=== PATIENT | male | born 1990 | race Caucasian/White ===

== ENCOUNTER 2022-04-05 08:19 | Outpatient (CLI) | payer OTHER, SELFPAY ==
[2022-04-05 09:51] LABS: Albumin* 4.3 g/dL (3.3-5.0); Chloride* 102 mmol/L (96-114)
[2022-04-05 09:52] LABS: Potassium* 4.2 mmol/L (3.6-5.1); Sodium* 140 mmol/L (135-149)
[2022-04-05 09:54] LABS: Aspartate Amino Transferase* 60 U/L (12-35); Bilirubin Total* 1.2 mg/dL (0.1-1.5); Blood Urea Nitrogen* 15 mg/dL (5-24); Carbon Dioxide* 30 mmol/L (20-32); Cholesterol* 155 mg/dL (90-199); Creatinine* 0.9 mg/dL (0.5-1.5); Estimated Glomerular Filt Rate 116 ml/min; Glucose* 101 mg/dL (60-115); Total Protein* 7.2 g/dL (6.0-8.3)
[2022-04-05 09:55] LABS: Alanine Aminotransferase* 103 U/L (4-50); Alkaline Phosphatase* 68 U/L (40-150); Calcium* 8.9 mg/dL (8.4-10.6); HDL Cholesterol* 50 mg/dL (>=40); LDL Cholesterol Calculated 78 mg/dL (<100); Triglycerides* 133 mg/dL (40-149)
== END 2022-04-05 08:20 | disposition home or self-care (01) ==
PROVIDERS: PCP Family Medicine; Visit Provider Family Medicine
DX: I10 Essential (primary) hypertension (principal); E66.9 Obesity, unspecified; Z13.6 Encounter for screening for cardiovascular disorders
CPT/HCPCS: 80053; 80061

== ENCOUNTER 2022-06-21 08:58 | Outpatient (CLI) | payer OTHER, SELFPAY | END 2022-06-21 08:59 | disposition home or self-care (01) | LOC: NFLDREF 09:00 | PROVIDERS: PCP Family Medicine; Visit Provider Family Medicine | DX: I10 Essential (primary) hypertension (principal); E66.9 Obesity, unspecified; B35.1 Tinea unguium | CPT/HCPCS: 80053 ==

== ENCOUNTER 2023-02-20 08:19 | Outpatient (CLI) | payer OTHER, SELFPAY | END 2023-02-20 08:20 | disposition home or self-care (01) | LOC: NFLDREF 02-21 16:17 | PROVIDERS: PCP Family Medicine; Referring Provider Family Medicine; Visit Provider Family Medicine | DX: Z00.00 Encounter for general adult medical examination without abnormal findings (principal); R79.89 Other specified abnormal findings of blood chemistry; I10 Essential (primary) hypertension; E66.01 Morbid (severe) obesity due to excess calories; Z13.6 Encounter for screening for cardiovascular disorders | CPT/HCPCS: 80053; 80061 ==

== ENCOUNTER 2023-04-13 08:34 | Outpatient (CLI) | payer OTHER, SELFPAY | END 2023-04-13 08:35 | disposition home or self-care (01) | PROVIDERS: PCP Family Medicine; Visit Provider Family Medicine | DX: I10 Essential (primary) hypertension (principal); Z12.5 Encounter for screening for malignant neoplasm of prostate | CPT/HCPCS: 80048; G0103 ==

== ENCOUNTER 2023-12-12 09:30 | Outpatient (RCR) | payer OTHER, SELFPAY | END 2024-04-03 15:25 | disposition home or self-care (01) | PROVIDERS: PCP Family Medicine; Visit Provider Family Medicine | DX: M54.16 Radiculopathy, lumbar region (principal); M70.60 Trochanteric bursitis, unspecified hip; M25.552 Pain in left hip; M54.50 Low back pain, unspecified; Z51.89 Encounter for other specified aftercare | CPT/HCPCS: 97110; 97140; 97161 ==

== ENCOUNTER 2024-02-08 09:32 | Outpatient (CLI) | payer OTHER, SELFPAY | END 2024-02-08 09:33 | disposition home or self-care (01) | LOC: NFLDREF 02-13 06:25 | PROVIDERS: PCP Family Medicine; Referring Provider Family Medicine; Visit Provider Family Medicine | DX: I10 Essential (primary) hypertension (principal); E87.6 Hypokalemia | CPT/HCPCS: 80053 ==

== ENCOUNTER 2024-02-23 11:30 | Outpatient (CLI) | payer OTHER, SELFPAY | END 2024-02-23 11:31 | disposition home or self-care (01) | LOC: NFLDREF 02-24 00:45 | PROVIDERS: PCP Family Medicine; Referring Provider Family Medicine; Visit Provider Family Medicine | DX: E87.6 Hypokalemia (principal) | CPT/HCPCS: 80048 ==

== ENCOUNTER 2025-02-10 07:40 | Outpatient (CLI) | payer BC, SELFPAY | END 2025-02-10 07:41 | disposition home or self-care (01) | LOC: NFLDREF 02-11 08:42 | PROVIDERS: PCP Family Medicine; Referring Provider Family Medicine; Visit Provider Family Medicine | DX: I10 Essential (primary) hypertension (principal) | CPT/HCPCS: 80053; 80061 ==